=== PATIENT | male | born 1945 | race Caucasian/White ===

== ENCOUNTER 2020-01-03 13:45 | Outpatient (CLI) | payer OTHER ==
[2020-01-03] MEDS ORDERED: SIMV80TA18 PO (14:33)
[2020-01-03] MEDS ORDERED: BISA5TAB5 PO (14:33)
[2020-01-03] MEDS ORDERED: PSYL1POW PO (14:33)
[2020-01-03 15:09] LABS: BASOPHILS # (AUTO) 0.03 x10^3/uL (0-0.1); BASOPHILS % (AUTO) 0 % (0-1); EOSINOPHILS # (AUTO) 0.03 x10^3/uL (0-0.4); EOSINOPHILS % (AUTO) 0 % (1-7); LYMPHOCYTES # (AUTO) 2.63 x10^3/uL (1-3.4); LYMPHOCYTES % (AUTO) 26 % (22-44); MD NO; MEAN CORPUSCULAR HEMOGLOBIN 33.5 pg (27.5-34.5); MONOCYTES # (AUTO) 0.71 x10^3/uL (0.2-0.8); MONOCYTES % (AUTO) 7 % (2-9); NEUTROPHILS # (AUTO) 6.85 x10^3/uL (1.8-6.8); NEUTROPHILS % (AUTO) 67 % (42-75); PLATELET COUNT 206 x10^3/uL (130-400); RED BLOOD COUNT 5.05 x10^6/uL (4.38-5.82); RED CELL DISTRIBUTION WIDTH 12.4 % (9.4-14.8)
[2020-01-03 15:10] LABS: MICROSCOPIC NOT IND
[2020-01-03 15:13] LABS: ANION GAP 7 mmol/L (5-15); CALCIUM 9.2 mg/dL (8.5-10.1); CHLORIDE 107 mmol/L (98-107); CREATININE 1.13 mg/dL (0.7-1.3)
[2020-01-03 15:14] LABS: INTERNATIONAL NORMALIZED RATIO 0.95 (0.93-1.1); PROTHROMBIN TIME 10.1 Seconds (9.6-11.5)
[2020-01-13] MEDS ORDERED: METH750T2 PO (09:04)
[2020-01-13] MEDS ORDERED: CEPH-368 PO (09:05)
[2020-01-13] MEDS ORDERED: OXYC-302 PO (09:06)
== END 2020-01-03 23:59 | disposition home or self-care (01) ==
LOC: STAR 13:45
PROVIDERS: ATTEND Neurological Surgery
DX: Z01.818 Encounter for other preprocedural examination (principal); Z01.811 Encounter for preprocedural respiratory examination; Z01.810 Encounter for preprocedural cardiovascular examination; Z01.812 Encounter for preprocedural laboratory examination; R79.1 Abnormal coagulation profile; M51.36 Other intervertebral disc degeneration, lumbar region; R94.31 Abnormal electrocardiogram [ECG] [EKG]; R82.90 Unspecified abnormal findings in urine; M48.061 Spinal stenosis, lumbar region without neurogenic claudication; M47.896 Other spondylosis, lumbar region; J84.10 Pulmonary fibrosis, unspecified
CPT/HCPCS: 36415; 71046; 72110; 80048; 81003; 85025; 85610; 85730; 93005

== ENCOUNTER 2020-01-08 08:33 | Outpatient (CLI) | payer OTHER ==
[~2020-01-08 08:33] MED LIST: BISA5TAB5 PO; PSYL1POW PO; SIMV80TA18 PO
[2020-01-13] MEDS ORDERED: METH750T2 PO (09:04)
[2020-01-13] MEDS ORDERED: CEPH-368 PO (09:05)
[2020-01-13] MEDS ORDERED: OXYC-302 PO (09:06)
== END 2020-01-08 23:59 | disposition home or self-care (01) ==
LOC: STAR 08:33
PROVIDERS: ATTEND Neurological Surgery
DX: Z02.9 Encounter for administrative examinations, unspecified (principal)